=== PATIENT | male | born 1970 | race Caucasian/White ===

== ENCOUNTER 2018-03-31 10:20 | Inpatient (IN) | payer MEDICAID ==
[~2018-03-31] VITALS: Ht 167.6 cm; Wt 72.6 kg
[~2018-03-31 10:20] MED LIST: DSS100 PO; ISON300 PO; RIFA300 PO
[2018-03-31] MEDS ORDERED: ZOLPIDEM TARTRATE 10 MG TABLET PO PRN (11:30)
[2018-03-31] MEDS ORDERED: HALOPERIDOL 5 MG TABLET PO PRN (11:30)
[2018-03-31] MEDS ORDERED: LORazepam 2 MG TABLET PO PRN (11:30)
[2018-03-31 13:20] VITALS: BP 134/109
[2018-03-31] MEDS ORDERED: DOCUSATE SODIUM 100 MG CAPSULE PO PRN (14:00)
[2018-03-31] MEDS ORDERED: MAGNESIUM HYDROXIDE SUSPENSION 30 ML UDCUP PO PRN (14:00)
[2018-03-31] MEDS ORDERED: PETROLATUM,WHITE 71 GM JELLY TP PRN (14:00)
[2018-03-31] MEDS ORDERED: ACETAMINOPHEN 325 MG TABLET PO PRN (14:00)
[2018-03-31] MEDS ORDERED: MAG HYDROX/AL HYDROX/SIMETH ES 30 ML SUSPENSION UDCUP PO PRN (14:00)
[2018-03-31] MEDS ORDERED: IBUPROFEN 400 MG TABLET PO PRN (14:00)
[2018-03-31] MEDS ORDERED: ALBUTEROL SULFATE HFA 90 MCG/PUFF 8 GM INHALER IH PRN (14:00)
[2018-03-31 18:52] VITALS: BP 123/78
[2018-03-31] MEDS: PALIPERIDONE 3 MG ER TABLET PO SCH (21:26)
[2018-04-01 06:58] LABS: BASOPHILS % (AUTO) 1.1 % (0.0-2.0); EOSINOPHILS % (AUTO) 4.7 % (1.0-6.0); HEMATOCRIT 43.5 % (41-53); LYMPHOCYTES # (AUTO) 0.8 K/uL (1.0-4.8); LYMPHOCYTES % (AUTO) 19.4 % (22.0-44.0); MEAN CORPUSCULAR HEMOGLOBIN 28.1 pg (26.0-34.0); MEAN CORPUSCULAR HGB CONC 34.4 G/dL (31.0-37.0); MEAN CORPUSCULAR VOLUME 82 fL (80-100); MONOCYTES # (AUTO) 0.4 K/uL (0.1-1.0); MONOCYTES % (AUTO) 10.2 % (2.0-9.0); NEUTROPHILS # (AUTO) 2.6 K/uL (1.8-7.7); NEUTROPHILS % (AUTO) 64.6 % (40.0-70.0); PLATELET COUNT (AUTO) 238 K/uL (150-450); RED BLOOD CELL COUNT(AUTO) 5.32 MIL/uL (4.50-5.90); RED CELL DISTRIBUTION WIDTH 17.7 % (11.5-14.5)
[2018-04-01 07:20] LABS: ALANINE AMINOTRANSFERASE 32 U/L (12-78); ALBUMIN 3.8 g/dL (3.4-5.0); ALKALINE PHOSPHATASE 79 U/L (46-116); ANION GAP 10 mmol/L (8-16); ASPARTATE AMINOTRANSFERASE 15 U/L (15-37); BILIRUBIN,TOTAL 0.2 mg/dL (0.1-1.0); CARBON DIOXIDE 23 mmol/L (22-29); CHLORIDE 109 mmol/L (98-107); CHOL/HDL RATIO 3.9 (4.2-7.3); CHOLESTEROL 253 mg/dL (131-200); CREATININE 0.73 mg/dL (0.60-1.30); GLOMERULAR FILTR. RATE CALC > 60 mL/min (>60); GLUCOSE,RANDOM 105 mg/dL (70-110); HDL CHOLESTEROL 65 mg/dL (40-60); LDL CHOL (CALC.) 165 mg/dL (0-130); POTASSIUM 4.4 mmol/L (3.5-5.1); SODIUM SERUM 142 mmol/L (136-145); TOTAL PROTEIN, SERUM 7.3 g/dL (6.4-8.2); TRIGLYCERIDES 117 mg/dL (15-150); UREA NITROGEN, BLOOD 14 mg/dL (7-18)
[2018-04-01] MEDS ORDERED: PYRIDOXINE HCL 50 MG TABLET PO SCH (09:00)
[2018-04-01] MEDS: NICOTINE 14 MG/24 HOUR PATCH TD SCH (09:00)
[2018-04-01 09:36] VITALS: BP 139/58
[2018-04-01] MEDS: RIFAMPIN 300 MG CAPSULE PO SCH (10:36)
[2018-04-01] MEDS: PYRIDOXINE HCL 50 MG TABLET PO SCH (10:36)
[2018-04-01] MEDS: ISONIAZID 300 MG TABLET PO SCH (10:37)
[2018-04-01 20:33] VITALS: BP 126/71
[2018-04-01] MEDS: PALIPERIDONE 3 MG ER TABLET PO SCH (20:44)
[2018-04-02 09:00] VITALS: BP 107/63
[2018-04-02] MEDS: NICOTINE 14 MG/24 HOUR PATCH TD SCH (09:00)
[2018-04-02] MEDS: RIFAMPIN 300 MG CAPSULE PO SCH (09:21)
[2018-04-02] MEDS: PYRIDOXINE HCL 50 MG TABLET PO SCH (09:21)
[2018-04-02] MEDS: ISONIAZID 300 MG TABLET PO SCH (09:22)
[2018-04-02] MEDS: PALIPERIDONE 3 MG ER TABLET PO SCH (20:07)
[2018-04-02 21:11] VITALS: BP 140/100
[2018-04-03] MEDS: NICOTINE 14 MG/24 HOUR PATCH TD SCH (09:00)
[2018-04-03] MEDS: PYRIDOXINE HCL 50 MG TABLET PO SCH (09:15)
[2018-04-03] MEDS: ISONIAZID 300 MG TABLET PO SCH (09:15)
[2018-04-03] MEDS: RIFAMPIN 300 MG CAPSULE PO SCH (09:15)
[2018-04-03 10:34] VITALS: BP 119/72
[2018-04-03 10:52] LABS: FOLATE SERUM 14.8 ng/mL (5.4-)
[2018-04-03 17:20] VITALS: BP 150/90
[2018-04-03] MEDS: PALIPERIDONE 3 MG ER TABLET PO SCH (20:14)
[2018-04-04 10:19] VITALS: BP 125/72
[2018-04-04] MEDS: RIFAMPIN 300 MG CAPSULE PO SCH (10:32)
[2018-04-04] MEDS: ISONIAZID 300 MG TABLET PO SCH (10:33)
[2018-04-04] MEDS: PYRIDOXINE HCL 50 MG TABLET PO SCH (10:33)
[2018-04-04] MEDS: NICOTINE 14 MG/24 HOUR PATCH TD PRN (10:38)
[2018-04-04 20:14] LABS: APPEARANCE,URINE CLEAR (CLEAR); BILIRUBIN,URINE NEGATIVE (NEGATIVE); GLUCOSE, URINE (UA) NEGATIVE (NEGATIVE); KETONES,URINE NEGATIVE (NEGATIVE); LEUKOCYTE ESTERASE ,URINE TRACE (NEGATIVE); NITRATE,URINE NEGATIVE (NEGATIVE); OCCULT BLOOD,URINE NEGATIVE (NEGATIVE); PH,URINE 7.5 (5.0-8.0); PROTEIN,URINE NEGATIVE (NEGATIVE)
[2018-04-04] MEDS: PALIPERIDONE 3 MG ER TABLET PO SCH (20:26)
[2018-04-04 21:05] LABS: RBC,URINE 0-2 /HPF (0-2)
[2018-04-04 21:07] LABS: WBC,URINE 0-2 /HPF (0-5)
[2018-04-04 21:09] LABS: BACTERIA,URINE None Seen /HPF (None Seen); SQUAMOUS EPITHELIAL CELL,UR Rare /LPF (None Seen)
[2018-04-04 23:01] VITALS: BP 122/70
[2018-04-05] MEDS: PYRIDOXINE HCL 50 MG TABLET PO SCH (09:30)
[2018-04-05] MEDS: ISONIAZID 300 MG TABLET PO SCH (09:30)
[2018-04-05] MEDS: RIFAMPIN 300 MG CAPSULE PO SCH (09:30)
[2018-04-05 09:41] VITALS: BP 121/84
[2018-04-05] MEDS: CIPROFLOXACIN HCL 250 MG TABLET PO SCH (16:29)
[2018-04-05 20:11] VITALS: BP 133/83
[2018-04-05] MEDS: PALIPERIDONE 3 MG ER TABLET PO SCH (20:32)
[2018-04-06 08:52] VITALS: BP 133/83
[2018-04-06] MEDS: CIPROFLOXACIN HCL 250 MG TABLET PO SCH ×2 (09:39→16:43)
[2018-04-06] MEDS: RIFAMPIN 300 MG CAPSULE PO SCH (09:40)
[2018-04-06] MEDS: ISONIAZID 300 MG TABLET PO SCH (09:40)
[2018-04-06] MEDS: PYRIDOXINE HCL 50 MG TABLET PO SCH (09:40)
[2018-04-06 18:29] VITALS: BP 130/78
[2018-04-06] MEDS: PALIPERIDONE 3 MG ER TABLET PO SCH (20:27)
[2018-04-07] MEDS: RIFAMPIN 300 MG CAPSULE PO SCH (08:21)
[2018-04-07] MEDS: ISONIAZID 300 MG TABLET PO SCH (08:21)
[2018-04-07] MEDS: PYRIDOXINE HCL 50 MG TABLET PO SCH (08:21)
[2018-04-07] MEDS: CIPROFLOXACIN HCL 250 MG TABLET PO SCH ×2 (08:21→16:17)
[2018-04-07 09:19] VITALS: BP 125/75
[2018-04-07 17:55] VITALS: BP 138/83
[2018-04-07] MEDS: PALIPERIDONE 3 MG ER TABLET PO SCH (20:53)
[2018-04-08 08:30] VITALS: BP 138/86
[2018-04-08] MEDS: CIPROFLOXACIN HCL 250 MG TABLET PO SCH ×2 (09:17→16:56)
[2018-04-08] MEDS: RIFAMPIN 300 MG CAPSULE PO SCH (09:18)
[2018-04-08] MEDS: PYRIDOXINE HCL 50 MG TABLET PO SCH (09:18)
[2018-04-08] MEDS: ISONIAZID 300 MG TABLET PO SCH (09:18)
[2018-04-08] MEDS: PALIPERIDONE 3 MG ER TABLET PO SCH (20:54)
[2018-04-08 20:56] VITALS: BP 139/80
[2018-04-09 06:32] LABS: BASOPHILS % (AUTO) 0.7 % (0.0-2.0); HEMATOCRIT 41.3 % (41-53); HEMOGLOBIN 14.2 g/dL (13.5-17.5); LYMPHOCYTES # (AUTO) 0.8 K/uL (1.0-4.8); MEAN CORPUSCULAR HGB CONC 34.4 G/dL (31.0-37.0); MEAN CORPUSCULAR VOLUME 81 fL (80-100); MONOCYTES # (AUTO) 0.4 K/uL (0.1-1.0); MONOCYTES % (AUTO) 11.6 % (2.0-9.0); NEUTROPHILS # (AUTO) 2.1 K/uL (1.8-7.7); NEUTROPHILS % (AUTO) 58.7 % (40.0-70.0); PLATELET COUNT (AUTO) 224 K/uL (150-450); RED BLOOD CELL COUNT(AUTO) 5.08 MIL/uL (4.50-5.90); RED CELL DISTRIBUTION WIDTH 17.3 % (11.5-14.5)
[2018-04-09] MEDS: RIFAMPIN 300 MG CAPSULE PO SCH (10:05)
[2018-04-09] MEDS: CIPROFLOXACIN HCL 250 MG TABLET PO SCH ×2 (10:05→16:23)
[2018-04-09] MEDS: ISONIAZID 300 MG TABLET PO SCH (10:05)
[2018-04-09] MEDS: PYRIDOXINE HCL 50 MG TABLET PO SCH (10:05)
[2018-04-09] MEDS: NICOTINE 14 MG/24 HOUR PATCH TD PRN (10:07)
[2018-04-09 11:51] VITALS: BP 123/62
[2018-04-09 16:00] VITALS: BP 125/84
[2018-04-09] MEDS: PALIPERIDONE 3 MG ER TABLET PO SCH (21:43)
[2018-04-10] MEDS: RIFAMPIN 300 MG CAPSULE PO SCH (08:16)
[2018-04-10] MEDS: PYRIDOXINE HCL 50 MG TABLET PO SCH (08:16)
[2018-04-10] MEDS: CIPROFLOXACIN HCL 250 MG TABLET PO SCH ×2 (08:16→16:19)
[2018-04-10] MEDS: ISONIAZID 300 MG TABLET PO SCH (08:16)
[2018-04-10 08:20] VITALS: BP 121/74
[2018-04-10 17:33] VITALS: BP 136/81
[2018-04-10] MEDS: PALIPERIDONE 3 MG ER TABLET PO SCH (20:37)
[2018-04-11] MEDS: RIFAMPIN 300 MG CAPSULE PO SCH (09:55)
[2018-04-11] MEDS: ISONIAZID 300 MG TABLET PO SCH (09:55)
[2018-04-11] MEDS: PYRIDOXINE HCL 50 MG TABLET PO SCH (09:55)
[2018-04-11] MEDS: CIPROFLOXACIN HCL 250 MG TABLET PO SCH (09:55)
[2018-04-11 09:57] VITALS: BP 123/76
[2018-04-12] MEDS ORDERED: PALIPERIDONE PALMITATE 234 MG/1.5 ML SYRINGE IM SCH (09:00)
== END 2018-04-11 11:00 | disposition left against medical advice (07) | DRG 750 ==
LOC: 3EI 10:20
PROVIDERS: ADMIT Psychiatry & Neurology Psychiatry; ATTEND Psychiatry & Neurology Psychiatry
DX: F20.0 Paranoid schizophrenia (principal); A15.0 Tuberculosis of lung; E78.5 Hyperlipidemia, unspecified; D72.819 Decreased white blood cell count, unspecified; F17.200 Nicotine dependence, unspecified, uncomplicated; K59.09 Other constipation; N39.0 Urinary tract infection, site not specified; Z71.51 Drug abuse counseling and surveillance of drug abuser
CPT/HCPCS: 82607; 82746; 87081; J3535

== ENCOUNTER 2018-04-13 19:40 | Inpatient (IN) | payer MEDICAID ==
[~2018-04-13] VITALS: Ht 167.6 cm; Wt 79.6 kg
[2018-04-13 20:30] LABS: BASOPHILS % (AUTO) 0.5 % (0.0-2.0); EOSINOPHILS % (AUTO) 1.5 % (1.0-6.0); HEMATOCRIT 47.6 % (41-53); HEMOGLOBIN 16.3 g/dL (13.5-17.5); LYMPHOCYTES # (AUTO) 1.3 K/uL (1.0-4.8); LYMPHOCYTES % (AUTO) 14.6 % (22.0-44.0); MEAN CORPUSCULAR HEMOGLOBIN 27.9 pg (26.0-34.0); MEAN CORPUSCULAR HGB CONC 34.3 G/dL (31.0-37.0); MEAN CORPUSCULAR VOLUME 81 fL (80-100); MONOCYTES # (AUTO) 0.9 K/uL (0.1-1.0); MONOCYTES % (AUTO) 10.4 % (2.0-9.0); NEUTROPHILS # (AUTO) 6.3 K/uL (1.8-7.7); PLATELET COUNT (AUTO) 284 K/uL (150-450); RED BLOOD CELL COUNT(AUTO) 5.87 MIL/uL (4.50-5.90); RED CELL DISTRIBUTION WIDTH 17.1 % (11.5-14.5)
[2018-04-13 20:45] LABS: ANION GAP 11 mmol/L (8-16); CALCIUM, TOTAL 8.4 mg/dL (8.8-10.5); CARBON DIOXIDE 26 mmol/L (22-29); CHLORIDE 101 mmol/L (98-107); CREATININE 0.95 mg/dL (0.60-1.30); GLOMERULAR FILTR. RATE CALC > 60 mL/min (>60); GLUCOSE,RANDOM 86 mg/dL (70-110); POTASSIUM 3.3 mmol/L (3.5-5.1); SODIUM SERUM 138 mmol/L (136-145); UREA NITROGEN, BLOOD 22 mg/dL (7-18)
[2018-04-13 20:51] LABS: ALANINE AMINOTRANSFERASE 52 U/L (12-78); ALBUMIN 4.5 g/dL (3.4-5.0); ALKALINE PHOSPHATASE 77 U/L (46-116); ASPARTATE AMINOTRANSFERASE 36 U/L (15-37); BILIRUBIN,TOTAL 0.6 mg/dL (0.1-1.0); TOTAL PROTEIN, SERUM 8.4 g/dL (6.4-8.2)
[2018-04-13] MEDS ORDERED: POTASSIUM CHLORIDE 20 MEQ ER TABLET PO ONE (23:15)
[2018-04-14] MEDS ORDERED: PALIPERIDONE 3 MG ER TABLET PO ONE (18:45)
[2018-04-15 00:38] VITALS: BP 138/79
[2018-04-15] MEDS ORDERED: ACETAMINOPHEN 325 MG TABLET PO PRN (07:15)
[2018-04-15] MEDS ORDERED: ONDANSETRON HCL 4 MG TABLET PO PRN (07:15)
[2018-04-15] MEDS ORDERED: LOPERAMIDE HCL 2 MG CAPSULE PO PRN (07:15)
[2018-04-15] MEDS ORDERED: CloNIDine HCL 0.1 MG TABLET PO PRN (07:15)
[2018-04-15] MEDS ORDERED: PETROLATUM,WHITE 71 GM JELLY TP PRN (07:15)
[2018-04-15] MEDS ORDERED: DOCUSATE SODIUM 100 MG CAPSULE PO PRN (07:15)
[2018-04-15] MEDS ORDERED: ALBUTEROL SULFATE HFA 90 MCG/PUFF 8 GM INHALER IH PRN (07:15)
[2018-04-15] MEDS ORDERED: MAG HYDROX/AL HYDROX/SIMETH ES 30 ML SUSPENSION UDCUP PO PRN (07:15)
[2018-04-15] MEDS ORDERED: MAGNESIUM HYDROXIDE SUSPENSION 30 ML UDCUP PO PRN (07:15)
[2018-04-15 08:36] VITALS: BP 105/64
[2018-04-15] MEDS: NICOTINE 14 MG/24 HOUR PATCH TD SCH (09:09)
[2018-04-15] MEDS: PYRIDOXINE HCL 50 MG TABLET PO SCH (14:27)
[2018-04-15] MEDS: ISONIAZID 300 MG TABLET PO SCH (14:28)
[2018-04-15] MEDS: RIFAMPIN 300 MG CAPSULE PO SCH (14:28)
[2018-04-15 16:55] VITALS: BP 110/62
[2018-04-16 08:28] VITALS: BP 109/69
[2018-04-16] MEDS: ISONIAZID 300 MG TABLET PO SCH (08:39)
[2018-04-16] MEDS: RIFAMPIN 300 MG CAPSULE PO SCH (08:39)
[2018-04-16] MEDS: PYRIDOXINE HCL 50 MG TABLET PO SCH (08:39)
[2018-04-16] MEDS: NICOTINE 14 MG/24 HOUR PATCH TD SCH (08:40)
[2018-04-16 10:30] LABS: BASOPHILS % (AUTO) 0.4 % (0.0-2.0); EOSINOPHILS % (AUTO) 3.3 % (1.0-6.0); HEMOGLOBIN 14.8 g/dL (13.5-17.5); LYMPHOCYTES # (AUTO) 0.8 K/uL (1.0-4.8); LYMPHOCYTES % (AUTO) 18.1 % (22.0-44.0); MEAN CORPUSCULAR HEMOGLOBIN 28.7 pg (26.0-34.0); MEAN CORPUSCULAR HGB CONC 35.4 G/dL (31.0-37.0); MEAN CORPUSCULAR VOLUME 81 fL (80-100); MONOCYTES # (AUTO) 0.3 K/uL (0.1-1.0); MONOCYTES % (AUTO) 7.4 % (2.0-9.0); NEUTROPHILS # (AUTO) 3.2 K/uL (1.8-7.7); NEUTROPHILS % (AUTO) 70.8 % (40.0-70.0); PLATELET COUNT (AUTO) 201 K/uL (150-450); RED BLOOD CELL COUNT(AUTO) 5.18 MIL/uL (4.50-5.90); RED CELL DISTRIBUTION WIDTH 16.4 % (11.5-14.5)
[2018-04-16] MEDS ORDERED: PALI3 PO (10:37)
[2018-04-16] MEDS ORDERED: PALI234D IM (10:37)
[2018-04-16 10:41] LABS: HEMOGLOBIN A1C 5.6 % (4.5-6.2)
[2018-04-16 10:46] LABS: ALANINE AMINOTRANSFERASE 37 U/L (12-78); ALBUMIN 3.4 g/dL (3.4-5.0); ALKALINE PHOSPHATASE 63 U/L (46-116); ANION GAP 3 mmol/L (8-16); ASPARTATE AMINOTRANSFERASE 18 U/L (15-37); BILIRUBIN,TOTAL 0.3 mg/dL (0.1-1.0); CALCIUM, TOTAL 8.4 mg/dL (8.8-10.5); CARBON DIOXIDE 28 mmol/L (22-29); CHLORIDE 108 mmol/L (98-107); CHOL/HDL RATIO 3.9 (4.2-7.3); CHOLESTEROL 190 mg/dL (131-200); GLOMERULAR FILTR. RATE CALC > 60 mL/min (>60); GLUCOSE,RANDOM 98 mg/dL (70-110); HDL CHOLESTEROL 49 mg/dL (40-60); LDL CHOL (CALC.) 109 mg/dL (0-130); POTASSIUM 4.2 mmol/L (3.5-5.1); SODIUM SERUM 139 mmol/L (136-145); THYROID STIMULATING HORMONE 0.98 uIU/mL (0.36-3.74); TOTAL PROTEIN, SERUM 6.6 g/dL (6.4-8.2); TRIGLYCERIDES 158 mg/dL (15-150); UREA NITROGEN, BLOOD 18 mg/dL (7-18)
[2018-04-16] MEDS: PALIPERIDONE PALMITATE 234 MG/1.5 ML SYRINGE IM SCH (12:50)
[2018-04-16] MEDS: PALIPERIDONE 3 MG ER TABLET PO SCH (20:16)
[2018-04-17 08:03] VITALS: BP 108/61
[2018-04-17] MEDS: ISONIAZID 300 MG TABLET PO SCH (09:15)
[2018-04-17] MEDS: RIFAMPIN 300 MG CAPSULE PO SCH (09:15)
[2018-04-17] MEDS: PYRIDOXINE HCL 50 MG TABLET PO SCH (09:15)
[2018-04-17] MEDS: NICOTINE 14 MG/24 HOUR PATCH TD SCH (09:16)
[2018-04-17 16:00] VITALS: BP 120/79
[2018-04-17] MEDS: PALIPERIDONE 3 MG ER TABLET PO SCH (21:15)
[2018-04-18 08:14] VITALS: BP 120/68
[2018-04-18] MEDS: RIFAMPIN 300 MG CAPSULE PO SCH (08:28)
[2018-04-18] MEDS: ISONIAZID 300 MG TABLET PO SCH (08:29)
[2018-04-18] MEDS: PYRIDOXINE HCL 50 MG TABLET PO SCH (08:29)
[2018-04-18] MEDS: NICOTINE 14 MG/24 HOUR PATCH TD SCH (09:00)
[2018-04-18] MEDS: IBUPROFEN 400 MG TABLET PO PRN (10:13)
[2018-04-18] MEDS: LORazepam 2 MG TABLET PO PRN ×2 (10:13→15:59)
[2018-04-18 10:15] VITALS: BP 125/76
[2018-04-18 16:14] VITALS: BP 105/62
[2018-04-18] MEDS: PALIPERIDONE 3 MG ER TABLET PO SCH (20:54)
[2018-04-19 01:55] VITALS: BP 126/84
[2018-04-19] MEDS: ZOLPIDEM TARTRATE 10 MG TABLET PO PRN (01:57)
[2018-04-19] MEDS: IBUPROFEN 400 MG TABLET PO PRN (01:57)
[2018-04-19] MEDS: ISONIAZID 300 MG TABLET PO SCH (08:06)
[2018-04-19] MEDS: RIFAMPIN 300 MG CAPSULE PO SCH (08:07)
[2018-04-19] MEDS: PYRIDOXINE HCL 50 MG TABLET PO SCH (08:07)
[2018-04-19] MEDS: LORazepam 2 MG TABLET PO PRN ×2 (08:09→16:42)
[2018-04-19] MEDS: NICOTINE 14 MG/24 HOUR PATCH TD SCH (09:00)
[2018-04-19 10:30] VITALS: BP 115/68
[2018-04-19 16:30] VITALS: BP 119/74
[2018-04-19] MEDS: PALIPERIDONE 3 MG ER TABLET PO SCH (21:04)
[2018-04-20 05:21] VITALS: BP 124/80
[2018-04-20] MEDS: LORazepam 2 MG TABLET PO PRN ×2 (08:26→16:32)
[2018-04-20] MEDS: ISONIAZID 300 MG TABLET PO SCH (08:26)
[2018-04-20] MEDS: PYRIDOXINE HCL 50 MG TABLET PO SCH (08:26)
[2018-04-20] MEDS: RIFAMPIN 300 MG CAPSULE PO SCH (08:26)
[2018-04-20] MEDS: NICOTINE 14 MG/24 HOUR PATCH TD SCH (08:26)
[2018-04-20] MEDS: IBUPROFEN 400 MG TABLET PO PRN (08:27)
[2018-04-20 09:16] VITALS: BP 104/61
[2018-04-20 10:58] LABS: APPEARANCE,URINE CLEAR (CLEAR); BILIRUBIN,URINE NEGATIVE (NEGATIVE); GLUCOSE, URINE (UA) NEGATIVE (NEGATIVE); KETONES,URINE NEGATIVE (NEGATIVE); LEUKOCYTE ESTERASE ,URINE NEGATIVE (NEGATIVE); NITRATE,URINE NEGATIVE (NEGATIVE); OCCULT BLOOD,URINE NEGATIVE (NEGATIVE); PROTEIN,URINE NEGATIVE (NEGATIVE); UROBILINOGEN,URINE 0.2 mg/dL (<=1.0)
[2018-04-20 11:00] LABS: AMPHET/METH SCREEN,URINE NEGATIVE (NEGATIVE); BARBITURATE SCREEN, URINE NEGATIVE (NEGATIVE); BENZODIAZEPINES SCREEN,URINE NEGATIVE (NEGATIVE); CANNABINOID SCREEN,URINE NEGATIVE (NEGATIVE); COCAINE SCREEN,URINE NEGATIVE (NEGATIVE); METHADONE SCREEN, URINE NEGATIVE (NEGATIVE); OPIATE SCREEN,URINE NEGATIVE (NEGATIVE)
[2018-04-20 11:02] LABS: PHENCYCLIDINE SCREEN,URINE NEGATIVE (NEGATIVE)
[2018-04-20 16:49] VITALS: BP 128/74
[2018-04-20] MEDS: PALIPERIDONE 3 MG ER TABLET PO SCH (20:10)
[2018-04-21] MEDS: PYRIDOXINE HCL 50 MG TABLET PO SCH (08:06)
[2018-04-21] MEDS: ISONIAZID 300 MG TABLET PO SCH (08:06)
[2018-04-21] MEDS: RIFAMPIN 300 MG CAPSULE PO SCH (08:06)
[2018-04-21] MEDS: NICOTINE 14 MG/24 HOUR PATCH TD SCH (08:06)
[2018-04-21] MEDS: LORazepam 2 MG TABLET PO PRN ×3 (08:06→18:52)
[2018-04-21] MEDS: IBUPROFEN 400 MG TABLET PO PRN (08:07)
[2018-04-21 10:19] VITALS: BP 125/80
[2018-04-21 19:21] VITALS: BP 128/81
[2018-04-21] MEDS: PALIPERIDONE 3 MG ER TABLET PO SCH (20:49)
[2018-04-22] MEDS: LORazepam 2 MG TABLET PO PRN ×4 (07:10→22:43)
[2018-04-22] MEDS: NICOTINE 14 MG/24 HOUR PATCH TD SCH (08:39)
[2018-04-22] MEDS: ISONIAZID 300 MG TABLET PO SCH (08:40)
[2018-04-22] MEDS: RIFAMPIN 300 MG CAPSULE PO SCH (08:40)
[2018-04-22] MEDS: PYRIDOXINE HCL 50 MG TABLET PO SCH (08:40)
[2018-04-22] MEDS: IBUPROFEN 400 MG TABLET PO PRN (11:49)
[2018-04-22 12:03] VITALS: BP 105/80
[2018-04-22 17:04] VITALS: BP 145/93
[2018-04-22] MEDS: PALIPERIDONE 3 MG ER TABLET PO SCH (21:45)
[2018-04-22] MEDS: ZOLPIDEM TARTRATE 10 MG TABLET PO PRN (22:43)
[2018-04-23 08:14] VITALS: BP 145/81
[2018-04-23] MEDS: ISONIAZID 300 MG TABLET PO SCH (08:14)
[2018-04-23] MEDS: IBUPROFEN 400 MG TABLET PO PRN (08:14)
[2018-04-23] MEDS: LORazepam 2 MG TABLET PO PRN ×2 (08:14→13:46)
[2018-04-23] MEDS: RIFAMPIN 300 MG CAPSULE PO SCH (08:15)
[2018-04-23] MEDS: PYRIDOXINE HCL 50 MG TABLET PO SCH (08:15)
[2018-04-23] MEDS: NICOTINE 14 MG/24 HOUR PATCH TD SCH (09:00)
[2018-04-23 17:59] VITALS: BP 136/80
[2018-04-23] MEDS: PALIPERIDONE 3 MG ER TABLET PO SCH (21:47)
[2018-04-24] MEDS: LORazepam 2 MG TABLET PO PRN ×3 (03:00→14:18)
[2018-04-24] MEDS: RIFAMPIN 300 MG CAPSULE PO SCH (08:26)
[2018-04-24] MEDS: PYRIDOXINE HCL 50 MG TABLET PO SCH (08:26)
[2018-04-24] MEDS: ISONIAZID 300 MG TABLET PO SCH (08:26)
[2018-04-24] MEDS: NICOTINE 14 MG/24 HOUR PATCH TD SCH (08:30)
[2018-04-24 09:54] VITALS: BP 125/82
[2018-04-24 17:13] VITALS: BP 122/80
[2018-04-24] MEDS: PALIPERIDONE 3 MG ER TABLET PO SCH (20:36)
[2018-04-25] MEDS: LORazepam 2 MG TABLET PO PRN ×4 (01:17→18:00)
[2018-04-25 06:26] VITALS: BP 125/90
[2018-04-25] MEDS: RIFAMPIN 300 MG CAPSULE PO SCH (07:51)
[2018-04-25] MEDS: NICOTINE 14 MG/24 HOUR PATCH TD SCH (07:52)
[2018-04-25] MEDS: ISONIAZID 300 MG TABLET PO SCH (07:52)
[2018-04-25] MEDS: PYRIDOXINE HCL 50 MG TABLET PO SCH (07:52)
[2018-04-25 08:05] VITALS: BP 117/82
[2018-04-25 17:57] VITALS: BP 129/84
[2018-04-25] MEDS: IBUPROFEN 400 MG TABLET PO PRN (18:00)
[2018-04-25] MEDS: PALIPERIDONE 3 MG ER TABLET PO SCH (20:10)
[2018-04-26] MEDS: IBUPROFEN 400 MG TABLET PO PRN (07:27)
[2018-04-26] MEDS: RIFAMPIN 300 MG CAPSULE PO SCH (07:27)
[2018-04-26] MEDS: ISONIAZID 300 MG TABLET PO SCH (07:27)
[2018-04-26] MEDS: LORazepam 2 MG TABLET PO PRN ×3 (07:27→16:26)
[2018-04-26] MEDS: PYRIDOXINE HCL 50 MG TABLET PO SCH (07:27)
[2018-04-26] MEDS: NICOTINE 14 MG/24 HOUR PATCH TD SCH (07:28)
[2018-04-26 08:00] VITALS: BP 115/74
[2018-04-26 16:14] VITALS: BP 141/80
[2018-04-26] MEDS: PALIPERIDONE 3 MG ER TABLET PO SCH (20:26)
[2018-04-27] MEDS: LORazepam 2 MG TABLET PO PRN ×3 (06:26→16:49)
[2018-04-27 08:00] VITALS: BP 137/81
[2018-04-27] MEDS: ISONIAZID 300 MG TABLET PO SCH (08:35)
[2018-04-27] MEDS: RIFAMPIN 300 MG CAPSULE PO SCH (08:35)
[2018-04-27] MEDS: PYRIDOXINE HCL 50 MG TABLET PO SCH (08:35)
[2018-04-27] MEDS: NICOTINE 14 MG/24 HOUR PATCH TD SCH (08:35)
[2018-04-27] MEDS: HALOPERIDOL 5 MG TABLET PO PRN (08:35)
[2018-04-27 19:34] VITALS: BP 129/68
[2018-04-27] MEDS: PALIPERIDONE 3 MG ER TABLET PO SCH (20:58)
[2018-04-28] MEDS: LORazepam 2 MG TABLET PO PRN ×4 (02:30→17:03)
[2018-04-28 02:31] VITALS: BP 135/78
[2018-04-28] MEDS: HALOPERIDOL 5 MG TABLET PO PRN ×2 (07:45→12:36)
[2018-04-28] MEDS: RIFAMPIN 300 MG CAPSULE PO SCH (07:45)
[2018-04-28] MEDS: NICOTINE 14 MG/24 HOUR PATCH TD SCH (07:45)
[2018-04-28] MEDS: PYRIDOXINE HCL 50 MG TABLET PO SCH (07:45)
[2018-04-28] MEDS: ISONIAZID 300 MG TABLET PO SCH (07:45)
[2018-04-28 09:15] VITALS: BP 127/59
[2018-04-28 16:07] VITALS: BP 159/94
[2018-04-28] MEDS: PALIPERIDONE 3 MG ER TABLET PO SCH (20:24)
[2018-04-29] MEDS: LORazepam 2 MG TABLET PO PRN ×3 (06:24→16:15)
[2018-04-29] MEDS: ISONIAZID 300 MG TABLET PO SCH (07:47)
[2018-04-29] MEDS: RIFAMPIN 300 MG CAPSULE PO SCH (07:47)
[2018-04-29] MEDS: PYRIDOXINE HCL 50 MG TABLET PO SCH (07:47)
[2018-04-29] MEDS: NICOTINE 14 MG/24 HOUR PATCH TD SCH (07:51)
[2018-04-29 09:55] VITALS: BP 124/76
[2018-04-29 16:45] VITALS: BP 120/65
[2018-04-29] MEDS: PALIPERIDONE 3 MG ER TABLET PO SCH (20:57)
[2018-04-30] VITALS: BP 112/78
[2018-04-30] MEDS: ZOLPIDEM TARTRATE 10 MG TABLET PO PRN
[2018-04-30] MEDS: LORazepam 2 MG TABLET PO PRN ×4 (00:01→16:43)
[2018-04-30] MEDS: PYRIDOXINE HCL 50 MG TABLET PO SCH (07:33)
[2018-04-30] MEDS: NICOTINE 14 MG/24 HOUR PATCH TD SCH (07:33)
[2018-04-30] MEDS: ISONIAZID 300 MG TABLET PO SCH (07:34)
[2018-04-30] MEDS: RIFAMPIN 300 MG CAPSULE PO SCH (07:34)
[2018-04-30 08:23] VITALS: BP 127/96
[2018-04-30 16:00] VITALS: BP 116/75
[2018-04-30] MEDS: PALIPERIDONE 3 MG ER TABLET PO SCH (21:21)
[2018-05-01] MEDS: LORazepam 2 MG TABLET PO PRN ×4 (05:10→23:29)
[2018-05-01 08:27] VITALS: BP 124/71
[2018-05-01] MEDS: PYRIDOXINE HCL 50 MG TABLET PO SCH (09:18)
[2018-05-01] MEDS: ISONIAZID 300 MG TABLET PO SCH (09:18)
[2018-05-01] MEDS: RIFAMPIN 300 MG CAPSULE PO SCH (09:19)
[2018-05-01] MEDS: NICOTINE 14 MG/24 HOUR PATCH TD SCH (09:25)
[2018-05-01 16:30] VITALS: BP 124/84
[2018-05-01] MEDS: PALIPERIDONE 3 MG ER TABLET PO SCH (20:26)
[2018-05-01] MEDS: ZOLPIDEM TARTRATE 10 MG TABLET PO PRN (23:29)
[2018-05-02] MEDS: ISONIAZID 300 MG TABLET PO SCH (07:31)
[2018-05-02] MEDS: PYRIDOXINE HCL 50 MG TABLET PO SCH (07:31)
[2018-05-02] MEDS: LORazepam 2 MG TABLET PO PRN ×3 (07:32→17:11)
[2018-05-02] MEDS: NICOTINE 14 MG/24 HOUR PATCH TD SCH (07:32)
[2018-05-02] MEDS: RIFAMPIN 300 MG CAPSULE PO SCH (07:32)
[2018-05-02 08:48] VITALS: BP_SYST 105; BP_SYST 115; BP_DIAS 83
[2018-05-02] MEDS: HALOPERIDOL 5 MG TABLET PO PRN (12:45)
[2018-05-02 20:00] VITALS: BP 115/80
[2018-05-02] MEDS: PALIPERIDONE 3 MG ER TABLET PO SCH (20:12)
[2018-05-03] MEDS: LORazepam 2 MG TABLET PO PRN ×3 (05:30→14:47)
[2018-05-03 08:00] VITALS: BP 131/76
[2018-05-03] MEDS: PYRIDOXINE HCL 50 MG TABLET PO SCH (08:10)
[2018-05-03] MEDS: ISONIAZID 300 MG TABLET PO SCH (08:10)
[2018-05-03] MEDS: RIFAMPIN 300 MG CAPSULE PO SCH (08:10)
[2018-05-03] MEDS: NICOTINE 14 MG/24 HOUR PATCH TD SCH (10:24)
[2018-05-03] MEDS: HALOPERIDOL 5 MG TABLET PO PRN ×2 (10:24→14:47)
[2018-05-03 17:32] VITALS: BP 122/76
[2018-05-03] MEDS: PALIPERIDONE 3 MG ER TABLET PO SCH (20:17)
[2018-05-04] MEDS: LORazepam 2 MG TABLET PO PRN ×3 (05:32→15:50)
[2018-05-04 05:38] VITALS: BP 119/60
[2018-05-04 07:19] LABS: ALANINE AMINOTRANSFERASE 28 U/L (12-78); ALKALINE PHOSPHATASE 72 U/L (46-116); ANION GAP 8 mmol/L (8-16); ASPARTATE AMINOTRANSFERASE 13 U/L (15-37); BILIRUBIN,TOTAL 0.3 mg/dL (0.1-1.0); CALCIUM, TOTAL 8.8 mg/dL (8.8-10.5); CARBON DIOXIDE 25 mmol/L (22-29); CHLORIDE 105 mmol/L (98-107); CREATININE 0.67 mg/dL (0.60-1.30); GLOMERULAR FILTR. RATE CALC > 60 mL/min (>60); GLUCOSE,RANDOM 95 mg/dL (70-110); SODIUM SERUM 138 mmol/L (136-145); TOTAL PROTEIN, SERUM 7.5 g/dL (6.4-8.2); UREA NITROGEN, BLOOD 14 mg/dL (7-18)
[2018-05-04 08:00] VITALS: BP 142/83
[2018-05-04] MEDS: RIFAMPIN 300 MG CAPSULE PO SCH (08:39)
[2018-05-04] MEDS: PYRIDOXINE HCL 50 MG TABLET PO SCH (08:39)
[2018-05-04] MEDS: ISONIAZID 300 MG TABLET PO SCH (08:39)
[2018-05-04] MEDS: NICOTINE 14 MG/24 HOUR PATCH TD SCH (08:42)
[2018-05-04 16:00] VITALS: BP 145/79
[2018-05-04] MEDS: PALIPERIDONE 3 MG ER TABLET PO SCH (20:26)
[2018-05-05 01:35] VITALS: BP 122/76
[2018-05-05] MEDS: LORazepam 2 MG TABLET PO PRN ×3 (01:39→10:47)
[2018-05-05] MEDS: NICOTINE 14 MG/24 HOUR PATCH TD SCH (09:00)
[2018-05-05 09:43] VITALS: BP 121/73
[2018-05-05] MEDS: ISONIAZID 300 MG TABLET PO SCH (10:16)
[2018-05-05] MEDS: PYRIDOXINE HCL 50 MG TABLET PO SCH (10:16)
[2018-05-05] MEDS: RIFAMPIN 300 MG CAPSULE PO SCH (10:16)
[2018-05-05] MEDS: PALIPERIDONE 3 MG ER TABLET PO SCH (20:39)
[2018-05-06 02:35] VITALS: BP 123/76
[2018-05-06] MEDS: ZOLPIDEM TARTRATE 10 MG TABLET PO PRN (02:38)
[2018-05-06] MEDS: LORazepam 2 MG TABLET PO PRN ×4 (02:40→18:30)
[2018-05-06] MEDS: PYRIDOXINE HCL 50 MG TABLET PO SCH (08:10)
[2018-05-06] MEDS: NICOTINE 14 MG/24 HOUR PATCH TD SCH (08:10)
[2018-05-06] MEDS: ISONIAZID 300 MG TABLET PO SCH (08:10)
[2018-05-06] MEDS: RIFAMPIN 300 MG CAPSULE PO SCH (08:10)
[2018-05-06 08:23] VITALS: BP 115/79
[2018-05-06] MEDS: IBUPROFEN 400 MG TABLET PO PRN (09:13)
[2018-05-06 17:00] VITALS: BP 126/74
[2018-05-06] MEDS: PALIPERIDONE 3 MG ER TABLET PO SCH (21:27)
[2018-05-07] MEDS: LORazepam 2 MG TABLET PO PRN ×4 (02:14→21:01)
[2018-05-07 08:26] VITALS: BP 115/71
[2018-05-07] MEDS: RIFAMPIN 300 MG CAPSULE PO SCH (08:29)
[2018-05-07] MEDS: PYRIDOXINE HCL 50 MG TABLET PO SCH (08:29)
[2018-05-07] MEDS: ISONIAZID 300 MG TABLET PO SCH (08:29)
[2018-05-07] MEDS: NICOTINE 14 MG/24 HOUR PATCH TD SCH (09:00)
[2018-05-07 16:00] VITALS: BP 141/83
[2018-05-07] MEDS: PALIPERIDONE 3 MG ER TABLET PO SCH (21:01)
[2018-05-08] MEDS: LORazepam 2 MG TABLET PO PRN ×2 (07:00→13:57)
[2018-05-08] MEDS: RIFAMPIN 300 MG CAPSULE PO SCH (08:34)
[2018-05-08] MEDS: PYRIDOXINE HCL 50 MG TABLET PO SCH (08:35)
[2018-05-08] MEDS: ISONIAZID 300 MG TABLET PO SCH (08:35)
[2018-05-08] MEDS: NICOTINE 14 MG/24 HOUR PATCH TD SCH (08:35)
[2018-05-08 08:51] VITALS: BP 130/83
[2018-05-08] MEDS: PALIPERIDONE 3 MG ER TABLET PO SCH (20:16)
[2018-05-08] MEDS: ZOLPIDEM TARTRATE 10 MG TABLET PO PRN (20:16)
[2018-05-09] MEDS: LORazepam 2 MG TABLET PO PRN ×3 (02:58→15:25)
[2018-05-09] MEDS: PYRIDOXINE HCL 50 MG TABLET PO SCH (08:44)
[2018-05-09] MEDS: ISONIAZID 300 MG TABLET PO SCH (08:44)
[2018-05-09] MEDS: RIFAMPIN 300 MG CAPSULE PO SCH (08:44)
[2018-05-09] MEDS: NICOTINE 14 MG/24 HOUR PATCH TD SCH (09:00)
[2018-05-09] MEDS: IBUPROFEN 400 MG TABLET PO PRN (09:12)
[2018-05-09 09:26] VITALS: BP 112/70
[2018-05-09 16:20] VITALS: BP 136/68
[2018-05-09] MEDS: PALIPERIDONE 3 MG ER TABLET PO SCH (20:21)
[2018-05-10 01:35] VITALS: BP 102/71
[2018-05-10] MEDS: ZOLPIDEM TARTRATE 10 MG TABLET PO PRN (01:38)
[2018-05-10] MEDS: LORazepam 2 MG TABLET PO PRN ×3 (01:38→16:17)
[2018-05-10] MEDS: ISONIAZID 300 MG TABLET PO SCH (08:17)
[2018-05-10] MEDS: PYRIDOXINE HCL 50 MG TABLET PO SCH (08:17)
[2018-05-10] MEDS: RIFAMPIN 300 MG CAPSULE PO SCH (08:17)
[2018-05-10] MEDS: NICOTINE 14 MG/24 HOUR PATCH TD SCH (08:18)
[2018-05-10 08:34] VITALS: BP 137/81
[2018-05-10 16:30] VITALS: BP 129/68
[2018-05-10] MEDS: PALIPERIDONE 3 MG ER TABLET PO SCH (21:50)
[2018-05-11] MEDS: LORazepam 2 MG TABLET PO PRN ×2 (07:04→13:50)
[2018-05-11] MEDS: PYRIDOXINE HCL 50 MG TABLET PO SCH (08:17)
[2018-05-11] MEDS: ISONIAZID 300 MG TABLET PO SCH (08:17)
[2018-05-11] MEDS: RIFAMPIN 300 MG CAPSULE PO SCH (08:17)
[2018-05-11] MEDS: NICOTINE 14 MG/24 HOUR PATCH TD SCH (09:00)
[2018-05-11 09:53] VITALS: BP 111/81
[2018-05-11] MEDS: IBUPROFEN 400 MG TABLET PO PRN (13:01)
[2018-05-11 16:00] VITALS: BP 108/76
[2018-05-11] MEDS: PALIPERIDONE 3 MG ER TABLET PO SCH (21:08)
[2018-05-12] MEDS: RIFAMPIN 300 MG CAPSULE PO SCH (08:12)
[2018-05-12] MEDS: ISONIAZID 300 MG TABLET PO SCH (08:12)
[2018-05-12] MEDS: PYRIDOXINE HCL 50 MG TABLET PO SCH (08:13)
[2018-05-12] MEDS: NICOTINE 14 MG/24 HOUR PATCH TD SCH (08:13)
[2018-05-12 09:01] VITALS: BP 124/86
[2018-05-12] MEDS: LORazepam 2 MG TABLET PO PRN (16:18)
[2018-05-12 16:57] VITALS: BP 145/74
[2018-05-12] MEDS: PALIPERIDONE 3 MG ER TABLET PO SCH (20:01)
[2018-05-12] MEDS: ZOLPIDEM TARTRATE 10 MG TABLET PO PRN (20:01)
[2018-05-13] MEDS: LORazepam 2 MG TABLET PO PRN ×2 (06:54→14:37)
[2018-05-13] MEDS: ISONIAZID 300 MG TABLET PO SCH (07:46)
[2018-05-13] MEDS: RIFAMPIN 300 MG CAPSULE PO SCH (07:46)
[2018-05-13] MEDS: PYRIDOXINE HCL 50 MG TABLET PO SCH (07:46)
[2018-05-13] MEDS: NICOTINE 14 MG/24 HOUR PATCH TD SCH (07:49)
[2018-05-13 09:38] VITALS: BP 117/88
[2018-05-13 17:34] VITALS: BP 127/83
[2018-05-13] MEDS: PALIPERIDONE 3 MG ER TABLET PO SCH (20:05)
[2018-05-13] MEDS: ZOLPIDEM TARTRATE 10 MG TABLET PO PRN (20:05)
[2018-05-14] MEDS: LORazepam 2 MG TABLET PO PRN ×3 (05:33→16:57)
[2018-05-14 08:19] VITALS: BP 115/77
[2018-05-14] MEDS: ISONIAZID 300 MG TABLET PO SCH (08:51)
[2018-05-14] MEDS: RIFAMPIN 300 MG CAPSULE PO SCH (08:51)
[2018-05-14] MEDS: NICOTINE 14 MG/24 HOUR PATCH TD SCH (08:54)
[2018-05-14] MEDS: PYRIDOXINE HCL 50 MG TABLET PO SCH (08:54)
[2018-05-14] MEDS: PALIPERIDONE PALMITATE 234 MG/1.5 ML SYRINGE IM SCH (10:02)
[2018-05-14 16:00] VITALS: BP 105/72
[2018-05-14] MEDS: PALIPERIDONE 3 MG ER TABLET PO SCH (20:02)
[2018-05-15] MEDS: NICOTINE 14 MG/24 HOUR PATCH TD SCH (08:01)
[2018-05-15] MEDS: RIFAMPIN 300 MG CAPSULE PO SCH (08:02)
[2018-05-15] MEDS: PYRIDOXINE HCL 50 MG TABLET PO SCH (08:02)
[2018-05-15] MEDS: ISONIAZID 300 MG TABLET PO SCH (08:02)
[2018-05-15 08:31] VITALS: BP 106/67
[2018-05-15] MEDS: LORazepam 2 MG TABLET PO PRN ×2 (08:39→15:58)
[2018-05-15 10:29] VITALS: BP 118/72
[2018-05-15] MEDS: IBUPROFEN 400 MG TABLET PO PRN (10:29)
[2018-05-15 11:29] VITALS: BP 115/71
[2018-05-15 16:00] VITALS: BP 130/90
[2018-05-15] MEDS: PALIPERIDONE 3 MG ER TABLET PO SCH (20:22)
[2018-05-16] MEDS: RIFAMPIN 300 MG CAPSULE PO SCH (07:47)
[2018-05-16] MEDS: PYRIDOXINE HCL 50 MG TABLET PO SCH (07:47)
[2018-05-16] MEDS: LORazepam 2 MG TABLET PO PRN ×3 (07:48→19:15)
[2018-05-16] MEDS: ISONIAZID 300 MG TABLET PO SCH (07:48)
[2018-05-16] MEDS: NICOTINE 14 MG/24 HOUR PATCH TD SCH (07:50)
[2018-05-16 08:26] VITALS: BP 137/85
[2018-05-16 17:07] VITALS: BP 116/87
[2018-05-16] MEDS: PALIPERIDONE 3 MG ER TABLET PO SCH (20:18)
[2018-05-17] MEDS: ISONIAZID 300 MG TABLET PO SCH (08:08)
[2018-05-17] MEDS: LORazepam 2 MG TABLET PO PRN ×3 (08:09→16:48)
[2018-05-17] MEDS: PYRIDOXINE HCL 50 MG TABLET PO SCH (08:09)
[2018-05-17] MEDS: RIFAMPIN 300 MG CAPSULE PO SCH (08:09)
[2018-05-17] MEDS: NICOTINE 14 MG/24 HOUR PATCH TD SCH (08:12)
[2018-05-17 08:13] VITALS: BP 116/75
[2018-05-17] MEDS: IBUPROFEN 400 MG TABLET PO PRN (09:53)
[2018-05-17 16:23] VITALS: BP 122/84
[2018-05-17] MEDS: PALIPERIDONE 3 MG ER TABLET PO SCH (21:27)
[2018-05-17] MEDS: ZOLPIDEM TARTRATE 10 MG TABLET PO PRN (21:28)
[2018-05-18 08:29] VITALS: BP 124/67
[2018-05-18] MEDS: ISONIAZID 300 MG TABLET PO SCH (09:02)
[2018-05-18] MEDS: RIFAMPIN 300 MG CAPSULE PO SCH (09:02)
[2018-05-18] MEDS: PYRIDOXINE HCL 50 MG TABLET PO SCH (09:02)
[2018-05-18] MEDS: NICOTINE 14 MG/24 HOUR PATCH TD SCH (09:06)
[2018-05-18] MEDS: LORazepam 2 MG TABLET PO PRN ×2 (10:06→15:40)
[2018-05-18] MEDS: PALIPERIDONE 3 MG ER TABLET PO SCH (20:18)
[2018-05-19] MEDS: LORazepam 2 MG TABLET PO PRN ×2 (06:43→12:56)
[2018-05-19 07:30] LABS: ALANINE AMINOTRANSFERASE 21 U/L (12-78); ALBUMIN 3.7 g/dL (3.4-5.0); ALKALINE PHOSPHATASE 81 U/L (46-116); ANION GAP 9 mmol/L (8-16); ASPARTATE AMINOTRANSFERASE 16 U/L (15-37); BILIRUBIN,TOTAL 0.3 mg/dL (0.1-1.0); CALCIUM, TOTAL 8.8 mg/dL (8.8-10.5); CARBON DIOXIDE 25 mmol/L (22-29); CHLORIDE 106 mmol/L (98-107); CREATININE 0.71 mg/dL (0.60-1.30); GLOMERULAR FILTR. RATE CALC > 60 mL/min (>60); GLUCOSE,RANDOM 94 mg/dL (70-110); POTASSIUM 4.3 mmol/L (3.5-5.1); SODIUM SERUM 140 mmol/L (136-145); TOTAL PROTEIN, SERUM 7.2 g/dL (6.4-8.2); UREA NITROGEN, BLOOD 15 mg/dL (7-18)
[2018-05-19 08:23] VITALS: BP 118/80
[2018-05-19] MEDS: RIFAMPIN 300 MG CAPSULE PO SCH (08:31)
[2018-05-19] MEDS: PYRIDOXINE HCL 50 MG TABLET PO SCH (08:31)
[2018-05-19] MEDS: ISONIAZID 300 MG TABLET PO SCH (08:31)
[2018-05-19] MEDS: NICOTINE 14 MG/24 HOUR PATCH TD SCH (08:36)
[2018-05-19] MEDS ORDERED: PYRI50 PO (14:39)
[2018-05-19] MEDS ORDERED: NICO-703 TD (14:41)
[2018-05-19 16:31] VITALS: BP 129/89
[2018-05-19] MEDS ORDERED: PALIPERIDONE 3 MG ER TABLET PO SCH (21:00)
[2018-05-20] MEDS: LORazepam 2 MG TABLET PO PRN ×2 (05:57→11:27)
[2018-05-20 08:43] VITALS: BP 130/89
[2018-05-20] MEDS: PYRIDOXINE HCL 50 MG TABLET PO SCH (08:59)
[2018-05-20] MEDS: ISONIAZID 300 MG TABLET PO SCH (08:59)
[2018-05-20] MEDS: NICOTINE 14 MG/24 HOUR PATCH TD SCH (08:59)
[2018-05-20] MEDS: RIFAMPIN 300 MG CAPSULE PO SCH (08:59)
[2018-05-20 16:00] VITALS: BP 135/89
[2018-05-20] MEDS ORDERED: PALIPERIDONE 6 MG ER TABLET PO SCH (21:00)
== END 2018-05-20 16:05 | disposition short-term general hospital (02) | DRG 750 ==
LOC: EMS 19:41 → 3EC 04-14 23:30
PROVIDERS: ADMIT Psychiatry & Neurology Psychiatry; ATTEND Psychiatry & Neurology Psychiatry
DX: F20.0 Paranoid schizophrenia (principal); K73.9 Chronic hepatitis, unspecified; E78.5 Hyperlipidemia, unspecified; E87.6 Hypokalemia; F12.90 Cannabis use, unspecified, uncomplicated; K59.09 Other constipation; F19.90 Other psychoactive substance use, unspecified, uncomplicated; F17.210 Nicotine dependence, cigarettes, uncomplicated; Z86.11 Personal history of tuberculosis; Z79.899 Other long term (current) drug therapy; Z71.6 Tobacco abuse counseling; Z72.89 Other problems related to lifestyle
CPT/HCPCS: 80307; 83036; 84443; 87081; 99285; G0480